=== PATIENT | female | born 1940 | race Caucasian/White ===

== ENCOUNTER 2017-03-06 15:43 | Emergency (ER) | payer MEDICARE, BC ==
[~2017-03-06] VITALS: Ht 152.4 cm; Wt 40.8 kg
[2017-03-06] MEDS ORDERED: LEVOFLOXACIN 500 MG/D5W 100ML PIGGYBACK IV ONE (16:00)
[2017-03-06] MEDS ORDERED: PIPERACILLIN SODIUM/TAZOBACTAM 3.375 G in IV DEXTROSE 5% 50 ML IV ONE (16:00)
[2017-03-06] MEDS ORDERED: IV NORMAL SALINE 1000 ML BAG IV ONE (16:00)
[2017-03-06 16:27] LABS: BASOPHILS % (AUTO) 0.3 % (0.0-2.0); HEMOGLOBIN 9.2 G/DL (12.0-16.0); LYMPHOCYTES % (AUTO) 8.7 % (20.5-51.5); MEAN CORPUSCULAR HEMOGLOBIN 32.9 UUG (27.0-31.0); MEAN CORPUSCULAR HGB CONC 33 g/dL (32.0-37.0); MEAN CORPUSCULAR VOLUME 99.9 FL (81.0-99.0); MONOCYTES # (AUTO) 0.4 K/UL (0.1-1.30); MONOCYTES % (AUTO) 3.1 % (0.0-11.0); NEUTROPHILS # (AUTO) 10.2 K/UL (1.8-8.9); NEUTROPHILS % (AUTO) 87.9 % (38.5-71.5); PLATELET COUNT (AUTO) 160 K/UL (150-450); WHITE BLOOD COUNT (AUTO) 11.6 K/UL (4.0-11.2)
[2017-03-06 16:28] LABS: CARBON DIOXIDE 31 mmol/L (21-32); CHLORIDE 115 mmol/L (98-107); CREATININE 1.5 mg/dL (0.6-1.3); GLUCOSE 147 mg/dL (74-106); UREA NITROGEN, BLOOD 34 mg/dL (7-18)
[2017-03-06] MEDS ORDERED: PIPERACILLIN/TAZOBACTAM/D5W 50 ML IV ONE (16:28)
[2017-03-06 16:30] LABS: POTASSIUM 2.3 mmol/L (3.5-5.1)
--- NOTE | 2017-03-06 16:39 | NUR ---
PT IS IN ROOM #1A. DR KAUFMAN EVALUATED THE PT.
[2017-03-06 16:40] LABS: ALANINE AMINOTRANSFERASE 8 U/L (14-59); ALKALINE PHOSPHATASE 144 U/L (50-136); ASPARTATE AMINOTRANSFERASE 20 U/L (15-37); BILIRUBIN,DIRECT 0.2 mg/dL (0.0-0.2); BILIRUBIN,TOTAL 0.4 mg/dL (0.2-1.0)
[2017-03-06] MEDS ORDERED: POTASSIUM CHLORIDE 20 MEQ POWDER PACKET PO ONE (16:45)
[2017-03-06 16:47] LABS: BAND % (MANUAL) 32 % (0-10); LYMPHOCYTES % (MANUAL) 7 % (20-40); MONOCYTES % (MANUAL) 3 % (2-10); NEUTROPHILS % (MANUAL) 58 % (42-75)
[2017-03-06] MEDS ORDERED: LEVOFLOXACIN 750MG/D5W 0 ML IV ONE (17:37)
[2017-03-06] MEDS ORDERED: POTASSIUM CHLORIDE 20 MEQ POWDER PACKET ONE (17:37)
[2017-03-06] MEDS ORDERED: LEVOFLOXACIN 500 MG/D5W 100 ML ONE (17:40)
[2017-03-06] MEDS ORDERED: ONDANSETRON IV *ER 4 MG/2 ML VIAL IV ONE ×3 (17:45→21:00)
[2017-03-06] MEDS ORDERED: ONDANSETRON 4 MG/2 ML VIAL ONE ×3 (17:58→21:04)
[2017-03-06 18:40] LABS: *BILIRUBIN,URIN NEGATIVE (NEGATIVE); *BLOOD, URINE NEGATIVE (NEGATIVE); *CLARITY,URINE CLEAR (CLEAR); *COLOR,URINE YELLOW (YELLOW); *KETONES,URINE NEGATIVE (NEGATIVE); *PROTEIN,URINE NEGATIVE (NEGATIVE); *UROBILINOGEN,URINE 0.2 E.U./dl (NORMAL); LEUKOCYTE ESTERASE ,URINE NEGATIVE (NEGATIVE); NITRITE, URINE NEGATIVE (NEGATIVE); PH,URINE 5.5 (5.0-8.0); UGLUCOSE NEGATIVE (NEGATIVE)
--- NOTE | 2017-03-06 18:42 | NUR ---
SPOKE TO [facility] [employer]NSFER [employer]ING STUDIES DIRECTOR, ABIGAIL. PT IS GOING TO BE ADMITED TO [facility], TO ROOM #211. ADMITTING MD IS DR CROOKS. DIAGNOSIS IS - RIGHT LOWER LOBE PNEUMONIA PHONE NUMBER FOR REPORT IS : [phone]. [facility] WAS CALLED - [phone] . MICHELLE TIME IS [address] KAUFMAN NOTIFIED.
[2017-03-06 18:43] LABS: BACTERIA,URINE NONE SEEN /HPF (NONE SEEN); RBC,URINE 0-3 /HPF (0-3)
[2017-03-06 18:44] LABS: SQUAMOUS EPITHELIAL CELL,UR FEW /HPF (NONE SEEN)
[2017-03-06] MEDS ORDERED: MORPHINE SULFATE 2 MG/1 ML DISP.SYRIN IV ONE (18:45)
--- NOTE | 2017-03-06 19:08 | NUR ---
REPORT WAS GIVEN TO PIG CASTER RN.
[2017-03-06] MEDS ORDERED: MORPHINE SULFATE 4 MG/1 ML DISP.SYRIN ONE (19:13)
--- NOTE | 2017-03-06 19:24 | NUR ---
Received report from GARY Quinn. Assumed care of pt at this time. Pt conts to c/o severe pain. Dr. Oviedo notified, awaiting further orders.
--- NOTE | 2017-03-06 19:41 | NUR ---
Pt medicated for cont discomfort. Will monitor for effects of medication.
[2017-03-06] MEDS ORDERED: HYDROMORPHONE 1 MG/1 ML DISP.SYRIN IV ONE ×2 (19:45→20:45)
[2017-03-06] MEDS ORDERED: HYDROMORPHONE 1 MG/1 ML DISP.SYRIN ONE ×2 (19:53→21:04)
--- NOTE | 2017-03-06 20:55 | NUR ---
Pt conts to c/o generalized pain, restless in bed and yelling out. Dr. Simmons notified and pt medicated for discomfort. Will monitor for effects of medication.
--- NOTE | 2017-03-06 21:03 | NUR ---
Called [facility] to give report. Spoke with GARY Conklin. After hearing report Rubin was concerned the pt would need to be placed in the [facility]. GARY Conklin to call back after speaking with his housekeeper manager.
--- NOTE | 2017-03-06 21:30 | NUR ---
Rubin VEGA from [place] called and updated they were waiting for a call back from accepting MD, Dr. Milner
--- NOTE | 2017-03-06 21:40 | NUR ---
GARY Conklin from [facility] stating he spoke with the accepting MD and pt will indeed be going to rm 211 and will not be upgraded to [facility]
[2017-03-06] MEDS ORDERED: POTASSIUM CHLORIDE 50 ML IV SCH (21:45)
--- NOTE | 2017-03-06 21:50 | NUR ---
Called [facility] to arrange ACLs transport because the BLS transport was canceled. ETA [id number], trip #: [id number]
[2017-03-06] MEDS ORDERED: POTASSIUM CHLORIDE 50 ML ONE (22:19)
--- NOTE | 2017-03-06 23:20 | NUR ---
Potassium infusion completed, no adverse reactions noted. Pt NSR on monitor. Pt repositioned for comfort.
--- NOTE | 2017-03-06 23:30 | NUR ---
Called [facility] for update on ETA. Was informed the crew will be delayed, new eta is an hour to hour and half. Clarification: trip #: [id number] was for the BLS that was canceled. Current trip #: [id number] for the ALS transport
--- NOTE | 2017-03-07 00:45 | NUR ---
Pt resting in position of comfort for self with eyes closed, resp even and unlabored. No obvious signs of distress at this time. Cont waiting ALS transport.
--- NOTE | 2017-03-07 01:12 | NUR ---
ALS transport at bedside. GARY Conklin updated. Preparing to transport pt to [place]
== END 2017-03-07 01:53 | disposition short-term general hospital (02) ==
LOC: ER 15:44
DX: A41.01 Sepsis due to Methicillin susceptible Staphylococcus aureus (principal); I50.9 Heart failure, unspecified; J18.9 Pneumonia, unspecified organism; Z88.8 Allergy status to other drugs, medicaments and biological substances
CPT/HCPCS: 36415; 71010; 80048; 80076; 81001; 83605 ×2; 83735; 83880; 84484; 85025; 85730; 87040 ×2; 87077; 87086; 93005; 96361; 96365; 96367; 96375; 96376; 99291; J1170 ×2; J1956; J2270; J2405 ×3; J2543; J3480; J7030; 70030-TC